=== PATIENT | male | born 1970 | race Caucasian/White ===

== ENCOUNTER 2020-01-28 11:40 | Emergency (ER) | payer MEDICAID ==
[~2020-01-28] VITALS: Ht 170.2 cm; Wt 94.5 kg
[2020-01-28 11:56] VITALS: BP 132/80
--- NOTE | 2020-01-28 12:12 | NUR ---
49 Y/O FEMALE FROM HOME C/O DIARRHEA X 5 DAYS. STATES BLACK STOOL STARTED YESTERDAY. DENIES PAIN. STATES 8 EPISODES OF DIARRHEA SINCE HE WOKE UP TODAY. DENIES NAUSEA/VOMITING. DENIES FEVER. ABD SOFT, ROUND, NONTENDER TO PALP. X 1 SIDE RAIL RAISED, BED LOCKED AND IN LOW POSITION
--- NOTE | 2020-01-28 12:13 | NUR ---
Dr. Miles is evaluating the patient at bedside.
--- NOTE | 2020-01-28 12:17 | NUR ---
RECTAL EXAM PERFORMED BY DR DAVID. PT TOLERATED WELL.
[2020-01-28 12:48] LABS: BASOPHILS % (AUTO) 0.1 % (0.0-2.0); EOSINOPHILS % (AUTO) 0.6 % (0.0-4.0); HEMATOCRIT 49.1 % (36-52); HEMOGLOBIN 16.7 g/dL (12.0-18.0); LYMPHOCYTES % (AUTO) 31.1 % (20.5-51.1); MEAN CORPUSCULAR HEMOGLOBIN 30 pg (27-31); MEAN CORPUSCULAR HGB CONC 34 g/dL (33-37); MONOCYTES # (AUTO) 0.5 K/uL (0.8-1.0); MONOCYTES % (AUTO) 7.7 % (1.7-9.3); NEUTROPHILS # (AUTO) 3.9 K/uL (1.8-7.7); NEUTROPHILS % (AUTO) 60.5 % (42.2-75.2); PLATELET COUNT (AUTO) 205 K/uL (140-450); RED BLOOD CELL COUNT(AUTO) 5.64 MIL/uL (4.20-6.10); RED CELL DISTRIBUTION WIDTH 13.2 % (11.6-13.7); WHITE BLOOD COUNT (AUTO) 6.5 K/uL (4.8-10.8)
[2020-01-28 12:57] LABS: APPEARANCE,URINE CLEAR (CLEAR); BILIRUBIN,URINE NEGATIVE (NEGATIVE); BLOOD, URINE NEGATIVE (NEGATIVE); COLOR,URINE YELLOW (YELLOW); LEUKOCYTE ESTERASE ,URINE NEGATIVE (NEGATIVE); NITRITE, URINE NEGATIVE (NEGATIVE); UGLUCOSE NEGATIVE (NEGATIVE)
[2020-01-28 13:00] LABS: ALBUMIN 4.2 g/dL (3.4-5.0); ANION GAP 15.4 (8-16); CARBON DIOXIDE 25.1 mmol/L (21-32); POTASSIUM 3.5 mmol/L (3.5-5.1); TOTAL BILIRUBIN 1.1 mg/dL (0.0-1.0)
--- NOTE | 2020-01-28 13:12 | NUR ---
SITTING UPRIGHT AWAKE AND ALERT. DENIES PAIN AT THIS TIME. X 1 SIDE RAIL RAISED, NO COMPLAINTS AT THIS TIME. WILL CONTINUE TO MONITOR
[2020-01-28 13:23] LABS: PROTHROMBIN TIME 9.9 secs (10.8-13.4)
--- NOTE | 2020-01-28 13:31 | NUR ---
PT BEING TAKEN TO XR VIA WC. Addendum: 01/28/20 at 1331 by [facility] PT BEING TAKEN TO CT VIA WHEELCHAIR.
[2020-01-28 14:17] VITALS: BP 144/84
--- NOTE | 2020-01-28 14:17 | NUR ---
Patient discharged with v/s stable. Written and verbal after care instructions given and explained. Patient verbalized understanding. Ambulatory with steady gait. All questions addressed prior to discharge. Advised to follow up with PMD.
== END 2020-01-28 14:17 | disposition home or self-care (01) ==
LOC: MED 11:40
DX: K92.2 Gastrointestinal hemorrhage, unspecified (principal); K57.90 Diverticulosis of intestine, part unspecified, without perforation or abscess without bleeding
CPT/HCPCS: 36415; 80053; 81003; 85025; 85610; 85730; 86886; 86900; 86901; 99284